=== PATIENT | female | born 1995 | race Caucasian/White ===

== ENCOUNTER 2022-03-19 14:00 | Emergency (ER) | payer MEDICAID ==
[~2022-03-19] VITALS: Ht 157.5 cm; Wt 65.8 kg
[2022-03-19 14:11] VITALS: BP 127/80
[2022-03-19 14:46] LABS: BASOPHILS % (AUTO) 0.6 % (0.0-2.0); EOSINOPHILS # (AUTO) 0.1 K/uL (0-0.4); EOSINOPHILS % (AUTO) 2.6 % (0.0-4.0); HEMATOCRIT 39.1 % (36-48); HEMOGLOBIN 12.9 g/dL (12.0-16.0); LYMPHOCYTES # (AUTO) 1.4 K/uL (2.5-16.5); LYMPHOCYTES % (AUTO) 24.6 % (20.5-51.1); MEAN CORPUSCULAR HEMOGLOBIN 26 pg (27-31); MEAN CORPUSCULAR HGB CONC 33 g/dL (33-37); MONOCYTES # (AUTO) 0.4 K/uL (0.8-1.0); MONOCYTES % (AUTO) 6.2 % (1.7-9.3); NEUTROPHILS # (AUTO) 3.8 K/uL (1.8-7.7); PLATELET COUNT (AUTO) 281 K/uL (140-450); RED BLOOD CELL COUNT(AUTO) 5.02 MIL/uL (4.20-5.40); RED CELL DISTRIBUTION WIDTH 14.7 % (11.6-13.7); WHITE BLOOD COUNT (AUTO) 5.8 K/uL (4.8-10.8)
[2022-03-19 15:09] LABS: ALBUMIN 4.2 g/dL (3.4-5.0); ANION GAP 11.2 (8-16); CARBON DIOXIDE 27.7 mmol/L (21-32); CREATININE 0.6 mg/dL (0.6-1.3); POTASSIUM 3.9 mmol/L (3.5-5.1); TOTAL BILIRUBIN 0.3 mg/dL (0.0-1.0)
--- NOTE | 2022-03-19 15:35 | NUR ---
PT AMBULATED TO BED 12
[2022-03-19] MEDS ORDERED: ONDANSETRON 4 MG ODT PO ONE (16:00)
[2022-03-19] MEDS ORDERED: KETOROLAC 30 MG/ML VIAL IVP ONE (16:00)
[2022-03-19] MEDS ORDERED: KETOROLAC 60 MG/2 ML VIAL IM ONE (16:05)
[2022-03-19] MEDS ORDERED: ONDA8TAB87 PO (16:21)
[2022-03-19] MEDS ORDERED: IBUP-2213 PO (16:21)
--- NOTE | 2022-03-19 16:34 | NUR ---
26/F PRESENTS TO ED WITH C/O EPIGASTRIC PAIN TODAY S/P A BOX FALLING ONTO HER. PATIENT REPORTS FEELING NAUSEA AND 7/10 PAIN SINCE, DENIES V/D, SOB, CP. PATIENT DENIES TAKING MEDICATIONS FOR PAIN OR NAUSEA PRIOR TO ARRIVAL.
--- NOTE | 2022-03-19 16:38 | NUR ---
Patient discharged with v/s stable. Written and verbal after care instructions ABOUT NAUSEA AND ABDOMINAL PAIN given and explained. Patient alert, oriented and verbalized understanding of instructions. Ambulatory with steady gait. All questions addressed prior to discharge. ID band removed. Patient advised to follow up with PMD. Rx of ZOFRAN AND IBUPROFEN given. Patient educated on indication of medication including possible reaction and side effects. Opportunity to ask questions provided and answered.
== END 2022-03-19 16:38 | disposition home or self-care (01) ==
LOC: MED 14:00
DX: R10.13 Epigastric pain (principal); R11.0 Nausea; W20.8XXA Other cause of strike by thrown, projected or falling object, initial encounter; Y93.89 Activity, other specified; Y92.89 Other specified places as the place of occurrence of the external cause; Y99.8 Other external cause status
CPT/HCPCS: 36415; 80053; 81025; 83690; 85025; 99283; Q0162; J1885